=== PATIENT | male | born 1985 ===

== ENCOUNTER 2017-07-10 11:59 | Day surgery (SDC) | payer OTHER ==
[~2017-07-10] VITALS: Ht 172.7 cm; Wt 88.2 kg
[2017-07-10 12:45] VITALS: BP 132/75; PULSE 67; TEMP 97.9
[2017-07-10 16:20] VITALS: BP 102/60; PULSE 52; TEMP 97.7
[2017-07-10] MEDS ORDERED: NORCO 325 MG-51 TAB PO (16:27)
[2017-07-10] MEDS ORDERED: MOTRIN 600600 MG/TAB PO (16:28)
[2017-07-10 16:35] VITALS: BP 117/67; PULSE 47
[2017-07-10 16:50] VITALS: BP 122/76; PULSE 55
== END 2017-07-10 17:57 | disposition home or self-care (01) ==
LOC: SDCO 11:59
DX: S61.001A Unspecified open wound of right thumb without damage to nail, initial encounter (principal); F17.210 Nicotine dependence, cigarettes, uncomplicated; K21.9 Gastro-esophageal reflux disease without esophagitis; Z82.49 Family history of ischemic heart disease and other diseases of the circulatory system
CPT/HCPCS: J0690; J1100; J1885; J2405; J2704; J3010; J7120